=== PATIENT | female | born 1950 | race Caucasian/White ===

== ENCOUNTER 2016-08-21 07:01 | Day surgery (SDC) | payer OTHER, MEDICAID ==
[~2016-08-21] VITALS: Ht 160 cm; Wt 50.3 kg
[2016-08-21] MEDS ORDERED: SIMETHICONE 40 MG/0.6 ML ML ONE (07:24)
[2016-08-21] MEDS: MIDAZOLAM HCL 5 MG/5 ML VIAL ONE ×5 (07:56→08:20)
[2016-08-21] MEDS: fentaNYL CITRATE/PF 100 MCG/2 ML AMP ONE ×4 (07:56→08:04)
[2016-08-21 11:10] VITALS: BP_SYST 148
== END 2016-08-21 11:07 | disposition home or self-care (01) ==
LOC: SDS 07:01 → SMU 07:02 → SDS 11:07
PROVIDERS: ATTEND Internal Medicine
DX: D12.0 Benign neoplasm of cecum (principal); K29.70 Gastritis, unspecified, without bleeding
CPT/HCPCS: 36415; 43239; 45380; 87081; 88305; 88312; 88313; J2250; J3010; J7030